=== PATIENT | female | born 1930 | race Caucasian/White ===

== ENCOUNTER → 2016-10-22 | Outpatient (CLI) | payer MEDICARE, BC ==
[~2016-10-22] MED LIST: APRESOLINE PO; ASACOL HD800 MG PO; ASACOL400 MG; ASACOL400 MG PO; ASPIRIN PO; ASPIRIN81 MG PO; AVELOX400 MG; CALTRATE PLUS T1 TAB; CALTRATE PLUS T1 TAB PO; CARDIZEM; CLOPIDOGREL75 MG PO; COLAZAL750 MG PO; DONEPEZIL HCL10 MG PO; DYAZIDE 37.5/251 CAP; ENTOCORT EC3 MG PO; FERROUS SULFATE PO; HCTZ PO; HYDROCHLOROTHIA25 MG PO; IMDUR-ER30 M1 PO; IMDUR-ER30 M2 PO; KCL PO; KLOR-CON PO; LIPITOR20 MG PO; LISINOPRIL PO; LORTAB 5/500 TA1 TA2 PO; MACROBID 100 M100 MG PO; METOPROLOL ER PO; METOPROLOL SUCC25 MG PO; MUCOMYST4 ML 20% PO; NITROGLYGERIN0.4 MG SL; NITROQUICK0.3 MG SL; NORVASC PO; NORVASC10 MG PO; OXAPROZIN600 MG; OXAPROZIN600 MG PO; PANTOPRAZOLE SO40 MG PO; PLAVIX PO; POTASSIUM CHLO10 ME1 PO; PRAVACHOL20 MG; PROTONIX PO; TOPROL XL 50 MG50 MG PO; TOPROL XL PO; TRIAMTERENE-HC1 EAC1 PO; VITAMIN B12 SHOT IM; VYTORIN; WELCHOL625 MG PO; ZESTRIL2.5 M1 PO; ZOCOR; ZOCOR PO
[2016-10-22 13:25] LABS: BASOPHIL# 0.1 X10e3 (0-0.3); BASOPHIL% 0.9 % (0-2.5); EOSINOPHIL# 0.2 X10e3 (0-0.7); EOSINOPHIL% 2.3 % (0.0-7.0); HEMATOCRIT 41.8 % (35.0-45.0); HEMOGLOBIN 13.6 gm/dL (12.0-16.0); LYMPHOCYTE% 24.3 % (17.0-45.0); MEAN CELL VOLUME 85.8 FL (83-96); MEAN CORPUSCULAR HEMOGLOBIN 27.8 PG (28-34); MEAN CORPUSCULAR HGB CONC 32.4 g/dL (30-36); MEAN PLATELET VOLUME 8.9 FL (6.5-11.5); MONOCYTE# 0.7 X10e3 (0-1.0); MONOCYTE% 8.7 % (3.0-12.0); NEUTROPHIL# 5.4 X10e3 (1.5-7.1); NEUTROPHIL% 63.8 % (40-75); PLATELET COUNT 158 X10e3 (140-420); RED BLOOD COUNT 4.87 X10e (3.90-5.30); WHITE BLOOD COUNT 8.4 X10e3 (4.0-10.5)
[2016-10-22 13:26] LABS: DIFF IND NO
[2016-10-22 13:45] LABS: BUN/CREATININE RATIO 12.14; CALCIUM SERUM 9.4 mg/dL (8.4-10.2); CREATININE SERUM 1.4 mg/dL (0.6-1.4); GLOM FILT RATE Estimated 33.9 mL/min (>60); PHOSPHOROUS 3.6 mg/dL (2.5-4.6); POTASSIUM 3.5 mmol/L (3.5-5.1)
[2016-10-22 14:03] LABS: URINE APPEARANCE CLEAR; URINE BILIRUBIN NEG (NEG); URINE BLOOD NEG (NEG); URINE COLOR YELLOW; URINE GLUCOSE NEG (NEG); URINE KETONE NEG (NEG); URINE LEUKOCYTE ESTERASE 1+ (NEG); URINE NITRATE NEG (NEG); URINE PROTEIN NEG (NEG); URINE SPECIFIC GRAVITY 1.008 (1.003-1.035); URINE UROBILINOGEN 0.2 MG/DL (NEG)
[2016-10-22 14:06] LABS: URINE BACTERIA AUWI NEG (NEGATIVE); URINE SQUAMOUS EPITHELIAL CELL OCC /[HPF]
[2016-10-28 12:27] LABS: CALCIUM (PTHINTACT) 9.6 mg/dL (8.6-10.4)
== END | disposition home or self-care (01) ==
LOC: CLAB 12:28
PROVIDERS: Internal Medicine Nephrology
DX: N18.3 Chronic kidney disease, stage 3 (moderate) (principal); N25.81 Secondary hyperparathyroidism of renal origin
CPT/HCPCS: 36415; 80048; 81003; 82306; 82310; 83970; 84100; 85025